=== PATIENT | male | born 1970 ===

== ENCOUNTER 2021-07-07 07:25 | Day surgery (SDC) | payer OTHER ==
[~2021-07-07 07:25] MED LIST: BUPROPION XL PO; CLONAZEPAM1 MG PO; COZAAR50 MG PO; HUMULIN N100 UNIT/2; HUMULIN R100 UNIT/1; JANUMET XR 50-1 EAC1 PO; JARDIANCE25 MG PO; LIPITOR20 MG PO; LIRICA PO; TOUJEO; ZOLOFT100 MG PO
[2021-07-07] MEDS ORDERED: PERCOCET 5-3251 EACH PO (15:23)
== END 2021-07-07 17:45 | disposition home or self-care (01) ==
LOC: CIR.AMB 07:25
PROVIDERS: ATTEND Surgery
DX: N52.8 Other male erectile dysfunction (principal); N48.6 Induration penis plastica; Z91.041 Radiographic dye allergy status; F41.0 Panic disorder [episodic paroxysmal anxiety]; E11.9 Type 2 diabetes mellitus without complications; E66.9 Obesity, unspecified; Z79.4 Long term (current) use of insulin